=== PATIENT | female | born 1960 | race Hispanic/Latino ===

== ENCOUNTER 2017-08-30 15:22 | Emergency (ER) | payer OTHER, MEDICARE ==
[2017-08-30] MEDS ORDERED: NACL 0.9% IR ONE (17:22)
[2017-08-30] MEDS ORDERED: XYLOCAINE 1% 20 mL INFILTRATI ONE (17:22)
[2017-08-30] MEDS ORDERED: PERCOCET 5/325 PO ONE (17:22)
[2017-08-30] MEDS ORDERED: BOOSTRIX IM ONE (17:22)
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
[2017-08-30] MEDS ORDERED: ceFAZolin 2 GM in NACL 0.9% 100 ML IV ONE (18:29)
[2017-08-30] MEDS ORDERED: ceFAZolin 2 GM in NACL 0.9% 20 ML IV ONE (18:45)
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
[2017-08-30 21:31] VITALS: BP 165/79
== END 2017-08-30 21:29 | disposition home or self-care (01) ==
LOC: ED 15:22
DX: S82.002A Unspecified fracture of left patella, initial encounter for closed fracture (principal); S81.012A Laceration without foreign body, left knee, initial encounter; S10.91XA Abrasion of unspecified part of neck, initial encounter; I10 Essential (primary) hypertension; E11.9 Type 2 diabetes mellitus without complications; K21.9 Gastro-esophageal reflux disease without esophagitis; M19.90 Unspecified osteoarthritis, unspecified site; Z88.2 Allergy status to sulfonamides; Z87.891 Personal history of nicotine dependence; V89.2XXA Person injured in unspecified motor-vehicle accident, traffic, initial encounter; Y93.89 Activity, other specified; Y92.89 Other specified places as the place of occurrence of the external cause; Y99.8 Other external cause status
CPT/HCPCS: 12032; 71020; 72040; 73564; 90471; 90715; 96365; 99284; J0690